=== PATIENT | male | born 1995 | race Hispanic/Latino ===

== ENCOUNTER 2018-09-14 15:43 | Emergency (ER) | payer OTHER ==
[2018-09-14] MEDS ORDERED: Lidocaine 1% 20 ML MDV ONE (15:54)
[2018-09-14] MEDS ORDERED: Adacel (T-DAP) 0.5 ML SYRINGE ONE (15:55)
== END 2018-09-14 16:20 | disposition home or self-care (01) ==
LOC: SCSER 15:43
DX: S61.211A Laceration without foreign body of left index finger without damage to nail, initial encounter (principal); Z23 Encounter for immunization; W26.0XXA Contact with knife, initial encounter
CPT/HCPCS: 12001; 90471; 90715; J2001